=== PATIENT | male | born 1975 | race Caucasian/White ===

== ENCOUNTER 2016-08-21 14:40 | Emergency (ER) | payer MEDICAID ==
[~2016-08-21] VITALS: Ht 160 cm; Wt 89.0 kg
[2016-08-21 14:44] VITALS: Ht 160 cm; Wt 89.0 kg
[2016-08-21] MEDS ORDERED: METHYLPREDNISOLONE 40 MG INJ IV ONE (16:30)
[2016-08-21] MEDS ORDERED: BUPIVACAINE 0.5% (MPF) 10 ML VIAL INJ ONE (16:30)
[2016-08-21] MEDS ORDERED: HYDR-902 PO (16:56)
[2016-08-21] MEDS ORDERED: IBUP800T25 PO (16:56)
--- NOTE | 2016-08-21 17:03 | ERD ---
ER Documentation Chief Complaint Date/Time DATE: 08/21/16 TIME: 16:58 Chief Complaint RIGHT KNEE PAIN HPI This is a 41-year-old male who twisted his knee 5 days ago while walking. He said he planted his right foot then turned left and he felt the pain in his medial knee space. There is no swelling or effusion no fall. There is no clicking or sticking but he says there is pain with walking he can bear weight he has range of motion but is painful at full knee flexion no erythema to the skin or fever ROS All systems reviewed and are negative except as per history of present illness. Medications Home Meds Active Scripts Hydrocodone/Acetaminophen (Garland 10-325 Tablet) 1 Each Tablet, 1 TAB PO Q6H Y for PAIN, #20 TAB Prov:BETTY REHMANSTCASTILLOS A. DO 08/21/16 Ibuprofen* (Motrin*) 800 Mg Tab, 800 MG PO Q6H Y for PAIN AND OR ELEVATED TEMP, #30 TAB Prov:LEBRYANOSAPOSTOLOS A. DO 08/21/16 Allergies Allergies: Coded Allergies: No Known Allergy (Unverified , 08/21/16) PMhx/Soc Medical and Surgical Hx: pt denies Medical Hx, pt denies Surgical Hx Hx Alcohol Use: Yes Hx Substance Use: No Hx Tobacco Use: No Smoking Status: Never smoker FmHx Family History: No coronary disease Physical Exam Vitals Vital Signs Date Time Temp Pulse Resp B/P Pulse Ox O2 Delivery O2 Flow Rate FiO2 08/21/16 14:44 98.1 66 20 117/66 99 Physical Exam Const: Well-developed, well-nourished Head: Atraumatic, normocephalic Eyes: Normal Conjunctiva, PERRLA, EOMI, normal sclera, no nystagmus ENT: Normal External Ears, Nose and Mouth, moist mucus membranes. Neck: Full range of motion. No meningismus, no lymphadenopathy. Resp: Clear to auscultation bilaterally, no wheezing, rhonchi, rales Cardio: Regular rate and rhythm, no murmurs, S1 S2 present Abd: Soft, non tender x 4, non distended. Normal bowel sounds, no guarding or rebound, no pulsitile abdominal masses or bruits Skin: No petechiae or rashes, no ecchymosis , no maculopapular rash Back: No midline or flank tenderness Ext: No cyanosis, or edema, FROM x 4, normal inspection, neurovascularly intact x 4, the right knee has tenderness at the medial joint space there is no effusion there is full range of motion but there is pain mostly with full knee flexion there is some mild pain with medial knee stress but no leg laxity Neur: Awake and alert, STR 5/5 x 4, sensation intact x 4, no focal findings, cerebellum intact Psych: Normal Mood and Affect Results 24 hrs Current Medications Medications (Trade) Dose Ordered Sig/Rafaela Route PRN Reason Start Time Stop Time Status Last Admin Dose Admin Methylprednisolone Sodium Succinate (Solu-Medrol) 40 mg ONCE ONCE IV 08/21/16 16:30 08/21/16 16:31 DC Bupivacaine HCl (Marcaine 0.5% (f Ez)) 10 ml ONCE ONCE INJ 08/21/16 16:30 08/21/16 16:31 DC Procedures/MDM My right knee injection: Patient's right knee was prepped in aseptic technique with Betadine. The right knee was injected at the medial joint space with 5 cc of solution containing 4 cc of 0.5% bupivacaine with 1 cc of 40 mg of Solu-Medrol Injection was using a 1.5 inch 27 gauge needle. Patient tolerated the procedure well with improvement of pain Told to get MRI in 2 weeks if not better Departure Diagnosis: Primary Impression: Derangement of knee, right Condition: Stable Patient Instructions: Knee Sprain Referrals: HANK BARKSDALE MD, APOSTOLOS A. DO August 21, 2016 17:03
[2016-08-21 18:26] VITALS: BP 124/76; PULSE 63; RESP 18; TEMP 98
== END 2016-08-21 18:28 | disposition home or self-care (01) ==
LOC: FTE 14:40
DX: M23.91 Unspecified internal derangement of right knee (principal)
CPT/HCPCS: 20610; J2920; Z7502; Z7610